=== PATIENT | female | born 1960 | race Caucasian/White ===

== ENCOUNTER → 2016-11-05 | Outpatient (CLI) | payer BC ==
--- NOTE | 2016-11-06 14:27 | MM ---
Reason for exam: screening (asymptomatic). Last mammogram was performed 1 year and 3 months ago. History: Patient is postmenopausal. Cancelled Left US Needle Biopsy of the left breast, June 26, 2007. Benign right US cyst aspiration ea add of the right breast, February 12, 2005. Benign right US cyst aspiration ea add of the right breast, February 12, 2005. Benign right US cyst aspiration ea add of the right breast, February 12, 2005. Benign right US cyst aspiration ea add of the right breast, February 12, 2005. Benign right US cyst aspiration of the right breast, February 12, 2005. Benign cyst aspiration, February 20, 2004. Benign cyst aspiration, February 20, 2004. Benign ultrasound-guided cyst aspiration, February 20, 2004. Benign ultrasound-guided cyst aspiration, February 20, 2004. Benign ultrasound-guided cyst aspiration, February 20, 2004. Benign ultrasound-guided cyst aspiration, February 20, 2004. Benign ultrasound-guided cyst aspiration of the left breast, February 20, 2004. Benign ultrasound-guided cyst aspiration of the right breast, February 20, 2004. 2 cyst aspirations. Took hormonal contraceptives for 4 years beginning at age 20. Physical Findings: A clinical breast exam by your physician is recommended on an annual basis and results should be correlated with mammographic findings. MG Screening Mammo w CAD Bilateral CC and MLO view(s) were taken. Prior study comparison: August 02, 2015, bilateral MG 3d screening mammo w/cad. July 27, 2014, bilateral MG screening mammo w CAD. The breast tissue is heterogeneously dense. This may lower the sensitivity of mammography. Stable benign calcifications. There is no discrete abnormality. No significant changes when compared with prior studies. ASSESSMENT: Benign, BI-RAD 2 RECOMMENDATION: Routine screening mammogram of both breasts in 1 year.
== END | disposition home or self-care (01) ==
LOC: RADMAMWWP 16:34
PROVIDERS: ATTEND Family Medicine
DX: Z12.31 Encounter for screening mammogram for malignant neoplasm of breast (principal)

== ENCOUNTER 2018-09-06 14:01 | Emergency (ER) | payer BC ==
[2018-09-06 14:23] VITALS: RESP 18; TEMP 98.3
[2018-09-06] MEDS ORDERED: TOBRAMYCIN 0.3% OPHTH DROPS 5 ML BTL RIGHT EYE STA (15:44)
[2018-09-06] MEDS ORDERED: PROPARACAINE 0.5% OPHTH DROPS 15 ML BTL RIGHT EYE STA (15:44)
--- NOTE | 2018-09-06 15:52 | ED ---
Eye Problem HPI - General Chief complaint: Eye Problems Stated complaint: Eye injury Time Seen by Provider: 09/06/18 14:52 Source: patient, RN notes reviewed, old records reviewed Mode of arrival: ambulatory Limitations: no limitations - History of Present Illness Initial comments: This is a 49-year-old female the ER with left eye pain, she states she did puncture left eye with a needle to arrival. She was trying to do something with her eyebrows. She does have some bleeding noted in the right eye. No vision changes. No other traumatic injury noted.(Tetanus is not up-to-date MD chief complaint: eye pain, eye injury -: hour(s) Onset Description: sudden Location: left eye Place: home If Injury: direct trauma Eye Symptoms: burning, redness Severity: mild Severity scale (1-10): 2 Consistency: constant Associated Symptoms: none Treatments Prior to Arrival: none - Related Data Home Medications Medication Instructions Recorded Confirmed Aspirin [Adult Low Dose Aspirin EC] 81 mg PO DAILY 12/05/15 01/10/16 Cholecalciferol [Vitamin D3] 1,000 unit PO DAILY 12/05/15 01/10/16 Multivitamins, Thera [Multivitamin] 1 tab PO DAILY 12/05/15 01/10/16 Ranitidine HCl [Zantac] 300 mg PO HS 12/05/15 01/12/16 Sucralfate [Carafate] 1 gm PO AC-TID 12/05/15 01/12/16 Vitamin E 100 unit PO DAILY 12/05/15 01/10/16 Previous Rx's Medication Instructions Recorded HYDROcodone/APAP 7.5-325MG [[place] 1 each PO Q4H PRN #60 tab 01/12/16 7.5] Allergies Allergy/AdvReac Type Severity Reaction Status Date / Time No Known Allergies Allergy Verified 09/06/18 14:23 Review of Systems ROS Statement: Those systems with pertinent positive or pertinent negative responses have been documented in the HPI. ROS Other: All systems not noted in ROS Statement are negative. Past Medical History Past Medical History: Deep Vein Thrombosis (DVT), GERD/Reflux Additional Past Medical History / Comment(s): abdominal pain, History of Any Multi-Drug Resistant Organisms: None Reported Past Surgical History: Cholecystectomy, Tonsillectomy Additional Past Surgical History / Comment(s): carpal tunnel, VARICOSE VVEIN JAGDEEP LEGS-LASER Past Anesthesia/Blood Transfusion Reactions: No Reported Reaction Past Psychological History: No Psychological Hx Reported Smoking Status: Current every day smoker Past Alcohol Use History: Occasional Past Drug Use History: None Reported - Past Family History Father Family Medical History: Cancer, Coronary Artery Disease (CAD), Myocardial Infarction ([place]) Additional Family Medical History / Comment(s): lymphoma General Exam Limitations: no limitations General appearance: alert, in no apparent distress Head exam: Present: atraumatic, normocephalic, normal inspection Eye exam: Present: normal appearance, PERRL, EOMI. Absent: scleral icterus, conjunctival injection, periorbital swelling, other (Patient does have left conjunctival hemorrhage subclinical hemorrhage the left lateral aspect of eye, no globe rupture noted. Lorcet exam is normal.) ENT exam: Present: normal exam, mucous membranes moist Neck exam: Present: normal inspection. Absent: tenderness, meningismus, lymphadenopathy Respiratory exam: Present: normal lung sounds bilaterally. Absent: respiratory distress, wheezes, rales, rhonchi, stridor Cardiovascular Exam: Present: regular rate, normal rhythm, normal heart sounds. Absent: systolic murmur, diastolic murmur, rubs, gallop, clicks GI/Abdominal exam: Present: soft, normal bowel sounds. Absent: distended, tenderness, guarding, rebound, rigid Extremities exam: Present: normal inspection, full ROM, normal capillary refill. Absent: tenderness, pedal edema, joint swelling, calf tenderness Back exam: Present: normal inspection Neurological exam: Present: alert, oriented X3, CN II-XII intact Psychiatric exam: Present: normal affect, normal mood Skin exam: Present: warm, dry, intact, normal color. Absent: rash Course Vital Signs 09/06/18 09/06/18 14:20 17:00 Temperature 98.3 F Pulse Rate 88 87 Respiratory 18 18 Rate Blood Pressure 158/91 147/82 O2 Sat by Pulse 98 99 Oximetry Medical Decision Making - Medical Decision Making 49 female the ER with puncture wound, given tenderness place on antibiotics and can be discharged home Disposition Clinical Impression: Subconjunctival hemorrhage, Corneal abrasion, left Disposition: HOME SELF-CARE Condition: Good Instructions (If sedation given, give patient instructions): Subconjunctival Hemorrhage (ED), Corneal Abrasion (ED) Is patient prescribed a controlled substance at d/c from ED?: No Referrals: Naima Cervantes DO [Primary Care Provider] - 1-2 days
[2018-09-06] MEDS ORDERED: DIPH,PERTUS(ACELL)TETVAC-LF 0.5 ML VIAL IM ONE (16:29)
[2018-09-06 17:01] VITALS: BP 147/82; PULSE 87
== END 2018-09-06 17:00 | disposition home or self-care (01) ==
LOC: EC 14:01
DX: S05.02XA Injury of conjunctiva and corneal abrasion without foreign body, left eye, initial encounter (principal); H11.32 Conjunctival hemorrhage, left eye; K21.9 Gastro-esophageal reflux disease without esophagitis; F17.200 Nicotine dependence, unspecified, uncomplicated; Z86.718 Personal history of other venous thrombosis and embolism; Z79.82 Long term (current) use of aspirin; Z79.899 Other long term (current) drug therapy; W22.8XXA Striking against or struck by other objects, initial encounter
CPT/HCPCS: 99283